=== PATIENT | female | born 1995 | race African-American/Black ===

== ENCOUNTER 2018-01-29 09:55 | Emergency (ER) | payer MEDICAID ==
[~2018-01-29] VITALS: Ht 162.6 cm; Wt 86.0 kg
[2018-01-29 10:04] VITALS: BP 126/81
[2018-01-29] MEDS ORDERED: FLUORESCEIN SODIUM 1MG/STRIP OP ONE (13:30)
[2018-01-29] MEDS ORDERED: TETRACAINE 0.5% OPHTH DROPS 4ML OP ONE (13:30)
[2018-01-29] MEDS ORDERED: IBUPROFEN 600MG TABLET PO ONE (13:30)
== END 2018-01-29 15:12 | disposition home or self-care (01) ==
LOC: ER 11:23
DX: H53.142 Visual discomfort, left eye (principal); J02.9 Acute pharyngitis, unspecified
CPT/HCPCS: 87070; 87430; 99284